=== PATIENT | female | born 1930 | race Caucasian/White ===

== ENCOUNTER → 2017-08-03 | Outpatient (CLI) | payer OTHER ==
[~2017-08-03] MED LIST: ALBUTEROL0.63 MG/3 IH; AMLODIPINE BESYL5 MG PO; ASPIRIN81 M1 PO; ATIVAN1 MG PO; ATORVASTATIN 40 MG T; Aspirin E.C. PO; BENAZEPRIL HCL40 MG; BENAZEPRIL HCL40 MG PO; BENGAY GREASEL113 GM TP; CALCIUM 600 +1 EAC1 PO; CEFPODOXIME PR100 MG PO; CELECOXIB200 MG PO; CORTIZONE-1028 GM TP; COUGH DROPS1 EAC1 MM; DETROL2 MG PO; DOCUSATE SODIU100 MG PO; ECOTRIN81 MG PO; ENDOCET 5-3251 EACH PO; EXELON PATCH9.5 MG TD; FAMOTIDINE20 MG PO; FOLIC ACID XTR0.8 MG PO; FOLIC ACID0.4 MG PO; FUROSEMIDE20 MG PO; HYDROCHLOROTH12.5 M1; HYDROCHLOROTH12.5 M3 PO; HYDROCODON-ACE1 EAC9 PO; LASIX20 MG PO; LASIX40 MG PO; LEVO-T112 MCG PO; LEVOCETIRIZINE D5 MG; LEVOTHYROXINE112 MCG PO; LEVOTHYROXINE150 MCG; LEVOTHYROXINE75 MCG PO; LIPITOR40 MG PO; LISINOPRIL20 MG PO; LISINOPRIL40 MG PO; LORAZEPAM0.5 MG PO; LOVENOX30 MG/0.3 SC; Levaquin PO; METOPROLOL SUCC25 MG; NORVASC5 MG PO; PAIN & FEVER500 MG PO; PEN-VEE K,VEET500 MG PO; PLAVIX75 MG; PLAVIX75 MG PO; PRINIVIL20 MG PO; RANITIDINE HCL150 MG; RANITIDINE HCL150 MG PO; RIVASTIGMINE3 MG PO; SENNA PLUS TAB1 EACH PO; SERTRALINE HCL100 MG PO; SODIUM CHLORIDE15 M2 BOTH EYES; THERAGRAN1 TABLET PO; TOPROL XL6.25 MG PO; TRAMADOL HCL50 MG PO; TYLENOL REGULA325 MG PO; ZOLOFT100 MG PO; Zestril,Prinivil PO
== END ==
LOC: AMB 09:25
DX: I83.018 Varicose veins of right lower extremity with ulcer other part of lower leg (principal); I83.028 Varicose veins of left lower extremity with ulcer other part of lower leg; L97.819 Non-pressure chronic ulcer of other part of right lower leg with unspecified severity; L97.829 Non-pressure chronic ulcer of other part of left lower leg with unspecified severity; F03.90 Unspecified dementia, unspecified severity, without behavioral disturbance, psychotic disturbance, mood disturbance, and anxiety
CPT/HCPCS: 99213